=== PATIENT | male | born 1995 | race Caucasian/White ===

== ENCOUNTER 2017-03-09 01:23 | Emergency (ER) | payer BC ==
[2017-03-09 01:30] VITALS: RESP 16; TEMP 98.1
--- NOTE | 2017-03-09 02:05 | ED ---
Anxiety HPI - General Chief Complaint: Recheck/Abnormal Lab/Rx Stated Complaint: chest pain, hypertension Time Seen by Provider: 03/09/17 01:32 Source: patient, family Mode of arrival: wheelchair - History of Present Illness MD Complaint: anxiety, shortness of breath -: hour(s) Symptoms: dyspnea, chest pain, extremity numbness/tingling Place: home Previous History of Same: Yes Severity: mild Quality: improving Provoking factors: emotional stress Improves With: nothing Worsens With: nothing - Related Data Allergies/Adverse Reactions: Allergies Allergy/AdvReac Type Severity Reaction Status Date / Time amoxicillin Allergy Rash/Hives Verified 03/09/17 01:30 cefprozil Allergy Rash/Hives Verified 03/09/17 01:30 Review of Systems ROS Statement: Those systems with pertinent positive or pertinent negative responses have been documented in the HPI. ROS Other: All systems not noted in ROS Statement are negative. Constitutional: Denies: fever, chills Respiratory: Reports: dyspnea. Denies: cough, wheezes Cardiovascular: Reports: chest pain. Denies: palpitations, dyspnea on exertion , orthopnea, edema, syncope Gastrointestinal: Denies: abdominal pain, nausea, vomiting Genitourinary: Denies: dysuria, hematuria Musculoskeletal: Denies: back pain Skin: Denies: rash Neurological: Denies: headache, weakness, numbness Past Medical History Additional Past Medical History / Comment(s): aspergers. dyslexia. History of Any Multi-Drug Resistant Organisms: None Reported Additional Past Surgical History / Comment(s): deviated septum. Past Psychological History: Anxiety, Depression Smoking Status: Never smoker Past Alcohol Use History: None Reported Past Drug Use History: None Reported General Exam Limitations: no limitations General appearance: alert, in no apparent distress, anxious Head exam: Present: atraumatic, normocephalic Eye exam: Present: normal appearance ENT exam: Present: normal oropharynx Neck exam: Present: normal inspection Respiratory exam: Present: normal lung sounds bilaterally. Absent: respiratory distress, wheezes, rales, rhonchi, stridor Cardiovascular Exam: Present: regular rate, normal rhythm, normal heart sounds. Absent: systolic murmur, diastolic murmur, rubs, gallop GI/Abdominal exam: Present: soft. Absent: distended, tenderness, guarding, rebound, mass Extremities exam: Present: normal inspection, normal capillary refill. Absent: pedal edema, calf tenderness Back exam: Present: normal inspection. Absent: CVA tenderness (R), CVA tenderness (L) Neurological exam: Present: alert Psychiatric exam: Present: anxious. Absent: depressed, agitated, homicidal ideation, suicidal ideation Skin exam: Present: warm, dry, intact, normal color. Absent: rash Course Vital Signs 03/09/17 01:26 Temperature 98.1 F Pulse Rate 86 Respiratory 16 Rate Blood Pressure 144/94 O2 Sat by Pulse 99 Oximetry Medical Decision Making - EKG Data -: EKG Interpreted by Ca EKG shows normal: sinus rhythm, axis (Normal), intervals (Normal), QRS complexes (Normal) Rate: normal (Rate approximately 79 bpm) Interpretation: nonspecific ST-T wave changes Disposition Clinical Impression: Anxiety Disposition: HOME SELF-CARE Condition: Good Instructions: Anxiety (ED), Hypertension (ED) Referrals: Dwain Kapadia MD [Primary Care Provider] - 1-2 days
--- NOTE | 2017-03-09 02:32 | XR ---
EXAMINATION TYPE: XR chest 2V DATE OF EXAM: 03/09/2017 COMPARISON: NONE HISTORY: Chest pain TECHNIQUE: Frontal and lateral views of the chest are obtained. FINDINGS: Heart and mediastinum are normal. Lungs are clear. Diaphragm is normal. Bony thorax appear s intact. IMPRESSION: Normal chest
[2017-03-09 03:48] VITALS: BP 141/72; PULSE 81
== END 2017-03-09 03:47 | disposition home or self-care (01) ==
LOC: EC 01:23
DX: F41.9 Anxiety disorder, unspecified (principal); I10 Essential (primary) hypertension; R07.9 Chest pain, unspecified; R20.0 Anesthesia of skin; R20.2 Paresthesia of skin; Z88.0 Allergy status to penicillin; Z88.1 Allergy status to other antibiotic agents
CPT/HCPCS: 71020; 99285

== ENCOUNTER → 2017-05-18 | Outpatient (CLI) | payer BC ==
--- NOTE | 2017-05-18 17:09 | CT ---
EXAMINATION TYPE: CT brain wo con DATE OF EXAM: 05/18/2017 COMPARISON: NONE HISTORY: 21-year-old male Dizziness x2 weeks. TECHNIQUE: Examination was done in axial plane without intravenous contrast. Coronal and sagittal r econstructions performed. CT DLP: 974.3 mGycm Automated exposure control for dose reduction was used. FINDINGS: There is no evidence of acute intracranial hemorrhage, acute ischemic changes, mass, mass-effect, or extra-axial fluid collection. There is no effacement of cerebral sulci or basal subarachnoid cister ns. There is no hydrocephalus. There is no midline shift. Schrader-white matter distinction is preserv ed. Left superior parietal scalp lesion that is densely calcified measuring 1.1 cm, possible calcified se baceous cyst Paranasal sinuses and mastoid air cells are well pneumatized. Orbits and globes are intact. IMPRESSION: No acute intracranial abnormality seen. No obvious posterior cranial fossa or cerebellopontine angle lesion by CT though CT is prone to skull base artifacts limiting assessment of this region.
== END | disposition home or self-care (01) ==
LOC: RADCTMAIN 15:59
PROVIDERS: ATTEND Family Medicine
DX: R42 Dizziness and giddiness (principal); Z88.0 Allergy status to penicillin; Z88.1 Allergy status to other antibiotic agents
CPT/HCPCS: 70450

== ENCOUNTER → 2018-05-05 | Outpatient (CLI) | payer BC ==
[2018-05-05 10:35] LABS: Basophils % (A) 1 %; Eosinophils # (A) 0.2 k/uL (0-0.7); Eosinophils % (A) 3 %; HCT 52.7 % (39.0-53.0); Lymphocytes # (A) 2.1 k/uL (1.0-4.8); Lymphocytes % (A) 38 %; MCH 30.8 pg (25.0-35.0); MCHC 34.2 g/dL (31.0-37.0); MCV 90.1 fL (80.0-100.0); Mean Platelet Volume 8.2; Monocytes # (A) 0.4 k/uL (0-1.0); Monocytes % (A) 7 %; Neutrophils # (A) 2.7 k/uL (1.3-7.7); Neutrophils % (A) 49 %; Platelet Count 237 k/uL (150-450); RBC 5.85 m/uL (4.30-5.90); RDW 12.5 % (11.5-15.5); WBC 5.5 k/uL (3.8-10.6)
[2018-05-05 17:04] LABS: Albumin 4.6 g/dL (3.80-4.90); Albumin/Globulin Ratio 2.09 (1.20-2.10); Anion Gap 7.2 mmol/L (4.00-12.00); Carbon Dioxide 31.8 mmol/L (21.6-31.8); Globulin 2.2 g/dL (1.6-3.3); LDL Cholesterol,Calculated 133.4 mg/dL (0.0-131.0); Potassium 4.8 mmol/L (3.5-5.5); Total Bilirubin 0.7 mg/dL (0.2-1.2); Total Protein 6.8 g/dL (6.2-8.2); VLDL Calculation 29.6 mg/dL (5.00-40.00)
[2018-05-05 17:11] LABS: T4, Free (Free Thyroxine) 1.1 ng/dL (0.80-1.80)
== END | disposition home or self-care (01) ==
LOC: LABWHC1 09:26
PROVIDERS: ATTEND Family Medicine
DX: Z00.00 Encounter for general adult medical examination without abnormal findings (principal)
CPT/HCPCS: 36415; 80053; 80061; 84439; 84443; 85025

== ENCOUNTER 2018-05-14 18:30 | Emergency (ER) | payer BC ==
[2018-05-14 18:35] VITALS: BP 104/59; PULSE 76; RESP 18; TEMP 97.2
--- NOTE | 2018-05-14 18:59 | ED ---
Upper Extremity HPI - General Chief Complaint: Extremity Injury, Upper Stated Complaint: Finger injury Time Seen by Provider: 05/14/18 18:36 Source: patient, RN notes reviewed, old records reviewed Mode of arrival: ambulatory Limitations: no limitations - History of Present Illness Initial Comments: Patient is a 22-year-old male presents emergency today with chief complaint of bruising over the distal right fourth finger. Patient reports that he was trying to put a board underneath a tractor wheel. He reports that the treadmill backed up over the distal tip of his finger. Patient states he has full range of motion of the finger. He has no open lacerations. Patient states that he has full range of motion of the finger and normal sensation distally. - Related Data Allergies Allergy/AdvReac Type Severity Reaction Status Date / Time amoxicillin Allergy Rash/Hives Verified 05/14/18 18:32 cefprozil Allergy Rash/Hives Verified 05/14/18 18:32 Review of Systems ROS Statement: Those systems with pertinent positive or pertinent negative responses have been documented in the HPI. ROS Other: All systems not noted in ROS Statement are negative. Past Medical History Additional Past Medical History / Comment(s): aspergers. dyslexia. History of Any Multi-Drug Resistant Organisms: None Reported Additional Past Surgical History / Comment(s): deviated septum. Past Psychological History: Anxiety, Depression Smoking Status: Never smoker Past Alcohol Use History: None Reported Past Drug Use History: None Reported General Exam - General Exam Comments Initial Comments: 22-year-old male. Alert and oriented. No distress. Limitations: no limitations General appearance: alert, in no apparent distress Head exam: Present: atraumatic, normocephalic, normal inspection Eye exam: Present: normal appearance, PERRL, EOMI. Absent: scleral icterus, conjunctival injection, periorbital swelling ENT exam: Present: normal exam, mucous membranes moist Neck exam: Present: normal inspection. Absent: tenderness, meningismus, lymphadenopathy Respiratory exam: Present: normal lung sounds bilaterally. Absent: respiratory distress, wheezes, rales, rhonchi, stridor Cardiovascular Exam: Present: regular rate, normal rhythm, normal heart sounds. Absent: systolic murmur, diastolic murmur, rubs, gallop, clicks GI/Abdominal exam: Present: soft, normal bowel sounds. Absent: distended, tenderness, guarding, rebound, rigid Right Upper Arm exam: Present: normal inspection, full ROM Elbow exam: Present: normal inspection, full ROM Forearm Wrist exam: Present: normal inspection, full ROM Hand Wrist exam: Present: tenderness, swelling (Centers swelling and evidence of bruise over the medial aspect of the right fourth distal digit. Full range of motion noted. Normal sensation. Normal capillary refill less than 2 seconds.). Absent: normal inspection Vascular: Present: normal capillary refill Back exam: Present: normal inspection Neurological exam: Present: alert, oriented X3, CN II-XII intact Course Vital Signs 05/14/18 18:32 Temperature 97.2 F L Pulse Rate 76 Respiratory 18 Rate Blood Pressure 104/59 O2 Sat by Pulse 97 Oximetry Medical Decision Making - Medical Decision Making 22-year-old male presents returns today with right fourth digit pain. He reports that his finger was crushed between the wheel tract was trying to put a board behind the wheel the tractor stop it. Patient has full range motion finger. Contusion noted to the medial distal aspect of the finger. Patient has no laceration. The nailbed she has no subungual hematoma. X-ray was negative for any acute fracture. No evidence of tuft fracture. At this time Patient be discharged with instructions to use ice and anti-inflammatory medicine. Discussed that Patient should practice range motion of the finger. And then ultimately Patient can follow-up with orthopedic hand specialist if symptoms are progressing or worsening. Patient agrees to treatment plan will comply. Return parameters were discussed. - Radiology Data Radiology results: report reviewed Negative right hand exam. Disposition Clinical Impression: Finger contusion Disposition: HOME SELF-CARE Condition: Good Instructions (If sedation given, give patient instructions): Finger Sprain (ED) Additional Instructions: Patient advised to follow-up with primary care physician. Patient should apply ice over the finger. Patient should return to the emergency department if any alarming signs or symptoms occur. Is patient prescribed a controlled substance at d/c from ED?: No Referrals: Dwain Kapadia MD [Primary Care Provider] - 1-2 days Time of Disposition: 19:22
--- NOTE | 2018-05-14 19:14 | XR ---
EXAMINATION TYPE: XR hand complete RT DATE OF EXAM: 05/14/2018 COMPARISON: NONE HISTORY: Hand pain TECHNIQUE: 3 views FINDINGS: Metacarpals are intact. I see no fracture nor dislocation. There are no erosions. Joint spa deven are normal. IMPRESSION: Negative right hand exam.
== END 2018-05-14 19:29 | disposition home or self-care (01) ==
LOC: EC 18:30
DX: S60.041A Contusion of right ring finger without damage to nail, initial encounter (principal); Z88.0 Allergy status to penicillin; Z88.1 Allergy status to other antibiotic agents; W23.0XXA Caught, crushed, jammed, or pinched between moving objects, initial encounter; Y93.89 Activity, other specified
CPT/HCPCS: 99284

== ENCOUNTER 2018-06-22 10:10 | Day surgery (SDC) | payer BC ==
[2018-06-20 14:02] VITALS: BMI 33.7
--- NOTE | 2018-06-22 08:47 | P.GSHP ---
History of Present Illness H&P Date: 06/22/18 CHIEF COMPLAINT: GERD HISTORY OF PRESENT ILLNESS: The patient is a 22-year-old male who presents reports gastroesophageal reflux disease. Upper endoscopy was offered for further evaluation and management. PAST MEDICAL HISTORY: Please see list. PAST SURGICAL HISTORY: Please see list. MEDICATIONS: Please see list. ALLERGIES: Please see list. SOCIAL HISTORY: No illicit drug use FAMILY HISTORY: No reports of Crohn disease or ulcerative colitis. REVIEW OF ORGAN SYSTEMS: CONSTITUTIONAL: No reports of fevers or chills. GI: Denies any blood in stools or constipation. PHYSICAL EXAM: VITAL SIGNS: Stable GENERAL: Well-developed and pleasant in no acute distress. HEENT: No scleral icterus. Extraocular movements grossly intact. Moist buccal mucosa. NECK: Supple without lymphadenopathy. CHEST: Unlabored respirations. Equal bilateral excursions. CARDIOVASCULAR: Regular rate and rhythm. Distal 2+ pulses. ABDOMEN: Soft, nondistended. MUSCULOSKELETAL: No clubbing, cyanosis, or edema. ASSESSMENT: 1. Gastroesophageal reflux disease PLAN: 1. Recommend proceeding with an upper endoscopy Past Medical History Past Medical History: GERD/Reflux Additional Past Medical History / Comment(s): aspergers. dyslexia. ENVIRONMENTAL ALLERGIES History of Any Multi-Drug Resistant Organisms: None Reported Additional Past Surgical History / Comment(s): deviated septum REPAIR Past Anesthesia/Blood Transfusion Reactions: No Reported Reaction Smoking Status: Never smoker - Past Family History Mother Family Medical History: No Reported History Medications and Allergies Home Medications Medication Instructions Recorded Confirmed Type Levocetirizine Dihydrochloride 5 mg PO DAILY 06/20/18 06/20/18 History [Xyzal] PARoxetine HCL 20 mg PO DAILY 06/20/18 06/20/18 History Ranitidine HCl [Zantac] 300 mg PO HS 06/20/18 06/20/18 History lamoTRIgine 150 mg PO DAILY 06/20/18 06/20/18 History Allergies Allergy/AdvReac Type Severity Reaction Status Date / Time amoxicillin Allergy Rash/Hives Verified 06/20/18 13:54 cefprozil Allergy Rash/Hives Verified 06/20/18 13:54
[~2018-06-22 10:10] MED LIST: LACTATED RINGERS 1,000 ML IV SCH
[2018-06-22 10:45] VITALS: RESP 18; TEMP 97.8
[2018-06-22] MEDS ORDERED: PROPOFOL 10 MG/ML 20 ML VIAL IV ONE (11:51)
[2018-06-22] MEDS ORDERED: fentaNYL (PF) 50 MCG/ML 2 ML AMP ONE (11:51)
[2018-06-22] MEDS ORDERED: MIDAZOLAM 2 MG/2 ML VIAL ONE (11:51)
--- NOTE | 2018-06-22 12:04 | P.PCN ---
Date of Procedure: 06/22/18 Description of Procedure: PREOPERATIVE DIAGNOSIS: Gastroesophageal reflux disease. POSTOPERATIVE DIAGNOSIS: Gastritis. Gastroesophageal reflux disease. OPERATION: Esophagogastroduodenoscopy with biopsies along antrum. SURGEON: Margarita Alarcon MD ANESTHESIA: MAC. INDICATIONS: The patient is a 22-year-old male who presents with a history of reflux disease. Benefits and risks of the procedure were described. Informed consent was obtained. DESCRIPTION: The patient was brought into the endoscopy suite and laid in the left lateral decubitus position. An Olympus gastroscope was passed along the posterior oropharynx down to the distal esophagus where the squamocolumnar junction was encountered at 42 cm from the incisors. The stomach was entered and no bile reflux was found. Additional findings are listed below. Biopsies with cold forceps were obtained of the antrum. The first through third portion of the duodenum was examined and unremarkable. Retroflexion of the scope confirmed Hill grade 1 lower esophageal valve. The squamocolumnar junction demonstrated LA grade A erosive esophagitis. The stomach was desufflated. The patient tolerated the procedure well. FINDINGS: Squamocolumnar junction 42 cm from the incisors. Diaphragmatic hiatus at 42 cm. Hill grade 1 lower esophageal valve. LA grade A erosive esophagitis. No active duodenitis. Chronic gastritis RECOMMENDATIONS: Upper endoscopy as needed. Plan - Discharge Summary Discharge Rx Participant: No New Discharge Prescriptions: New Omeprazole 40 mg PO DAILY #90 capsule. No Action Ranitidine HCl [Zantac] 300 mg PO HS lamoTRIgine 150 mg PO DAILY PARoxetine HCL 20 mg PO DAILY Levocetirizine Dihydrochloride [Xyzal] 5 mg PO DAILY Discharge Medication List Levocetirizine Dihydrochloride [Xyzal] 5 mg PO DAILY 06/20/18 [History] PARoxetine HCL 20 mg PO DAILY 06/20/18 [History] Ranitidine HCl [Zantac] 300 mg PO HS 06/20/18 [History] lamoTRIgine 150 mg PO DAILY 06/20/18 [History] Omeprazole 40 mg PO DAILY #90 capsule. 06/22/18 [Rx] Follow up Appointment(s)/Referral(s): Margarita Alarcon MD [STAFF PHYSICIAN] - 07/17/18 Patient Instructions/Handouts: Gastroesophageal Reflux Disease (DC) Discharge Disposition: HOME SELF-CARE
[2018-06-22 12:26] VITALS: BP 126/68; PULSE 77
== END 2018-06-22 12:46 | disposition home or self-care (01) ==
LOC: ORWHC2ENDO 10:10
PROVIDERS: ATTEND Surgery Plastic and Reconstructive Surgery
DX: K21.0 Gastro-esophageal reflux disease with esophagitis (principal); K29.50 Unspecified chronic gastritis without bleeding; R48.0 Dyslexia and alexia; F32.9 Major depressive disorder, single episode, unspecified; Z79.899 Other long term (current) drug therapy; Z88.1 Allergy status to other antibiotic agents; Z91.09 Other allergy status, other than to drugs and biological substances
CPT/HCPCS: 88305; 43239; J2250; J3010; J2704

== ENCOUNTER → 2018-06-25 | Outpatient (CLI) | payer BC ==
--- NOTE | 2018-06-25 13:25 | US ---
EXAMINATION TYPE: US abdomen limited DATE OF EXAM: 06/25/2018 COMPARISON: NONE CLINICAL HISTORY: K21.9 GERD. . Right upper quadrant and epigastric pain. EXAM MEASUREMENTS: Liver Length: 14.8 cm Gallbladder Wall: 0.3 cm CBD: 0.3 cm Right Kidney: 10.7 x 6.3 x 5.5 cm Technical limitations due to overlying bowel content Pancreas: Obscured by bowel gas Liver: appears wnl Gallbladder: no evidence of stones Evidence for sonographic Diaz's sign: no CBD: appears wnl Right Kidney: no evidence of hydronephrosis Suboptimal study due to overlying bowel gas per technologist. Suboptimal evaluation of pancreas noted on images saved. IMPRESSION: No gallstones or ultrasound evidence for acute cholecystitis.
--- NOTE | 2018-06-25 15:10 | NM ---
EXAMINATION TYPE: NM hepatobiliary w EF DATE OF EXAM: 06/25/2018 COMPARISON: Same-day Limited abdominal ultrasound HISTORY: GERD per order. Additional symptoms of heartburn per patient. TECHNIQUE: After the intravenous administration of 5.3 mCi Tc 99m Mebrofenin hepatobiliary scintigrap hy is performed. Immediate images post injection. FINDINGS: There is satisfactory initial accumulation of tracer by the liver. The gallbladder is visualized wit hin 25 minutes. The small bowel activity is noted within 15 minutes. At one hour 8 ounces of oral e nsure plus is given to mimic CCK and gallbladder ejection fraction is calculated at 64 %, in the norm al range. Therefore there is no scintigraphic evidence of cystic or common bile duct obstruction to suggest acute cholecystitis or gallbladder dyskinesia. IMPRESSION: Exam is within normal limits.
== END | disposition home or self-care (01) ==
LOC: RADUSMAIN 12:09
PROVIDERS: ATTEND Surgery Plastic and Reconstructive Surgery
DX: K21.9 Gastro-esophageal reflux disease without esophagitis (principal)
CPT/HCPCS: 76705; 78226; A9537

== ENCOUNTER → 2019-04-16 | Outpatient (CLI) | payer BC ==
[2019-04-16 10:11] LABS: Basophils % (A) 0 %; Eosinophils # (A) 0.2 k/uL (0-0.7); Eosinophils % (A) 3 %; HCT 50.8 % (39.0-53.0); HGB 17.6 gm/dL (13.0-17.5); Lymphocytes # (A) 2.2 k/uL (1.0-4.8); Lymphocytes % (A) 39 %; MCHC 34.7 g/dL (31.0-37.0); MCV 89.4 fL (80.0-100.0); Mean Platelet Volume 8.4; Monocytes # (A) 0.3 k/uL (0-1.0); Monocytes % (A) 6 %; Neutrophils # (A) 2.7 k/uL (1.3-7.7); Neutrophils % (A) 48 %; Platelet Count 230 k/uL (150-450); RBC 5.68 m/uL (4.30-5.90); RDW 11.7 % (11.5-15.5); WBC 5.6 k/uL (3.8-10.6)
[2019-04-16 17:16] LABS: African American GFR (CKD) 107.6 (60.0-200.0); Albumin 4.6 g/dL (3.80-4.90); Albumin/Globulin Ratio 2.42 (1.60-3.17); Anion Gap 7.3 mmol/L (4.00-12.00); BUN/Creat Ratio 11.82 Ratio (12.00-20.00); Carbon Dioxide 29.7 mmol/L (21.6-31.8); Chol/HDL Ratio 3.92; Globulin 1.9 g/dL (1.6-3.3); LDL Cholesterol,Calculated 131.6 mg/dL (0.0-131.0); Non-African American GFR(CKD) 92.8 (60.0-200.0); Potassium 4.8 mmol/L (3.5-5.5); Total Bilirubin 0.6 mg/dL (0.2-1.2); Total Protein 6.5 g/dL (6.2-8.2); VLDL Calculation 20.4 mg/dL (5.00-40.00)
[2019-04-16 17:24] LABS: T4, Free (Free Thyroxine) 1.2 ng/dL (0.80-1.80)
== END | disposition home or self-care (01) ==
LOC: LABWHC1 09:35
PROVIDERS: ATTEND Family Medicine
DX: Z00.00 Encounter for general adult medical examination without abnormal findings (principal)
CPT/HCPCS: 36415; 80053; 80061; 84439; 84443; 85025

== ENCOUNTER → 2021-06-19 | Outpatient (CLI) | payer BC ==
[2021-06-19 16:47] LABS: Basophils # (A) 0.05 X 10*3/uL (0.00-0.10); Basophils % (A) 0.8 %; Eosinophils % (A) 3.2 %; HCT 49.8 % (39.6-50.0); HGB 16.9 g/dL (13.0-17.0); Immature Grans, Automated 0.5 %; Lymphocytes # (A) 2.46 X 10*3/uL (0.90-5.00); Lymphocytes % (A) 39.5 %; MCH 30.6 pg (27.0-32.0); MCHC 33.9 g/dL (32.0-37.0); MCV 90.1 fL (80.0-97.0); Monocytes # (A) 0.67 X 10*3/uL (0.20-1.00); Monocytes % (A) 10.8 %; NRBC Per 100 WBC 0 /100 WBCS (0.0-0.0); Neutrophils # (A) 2.82 X 10*3/uL (1.80-7.70); Neutrophils % (A) 45.2 %; Platelet Count 240 X 10*3/uL (140-440); RBC 5.53 X 10*6/uL (4.40-5.60); RDW 12.2 % (11.5-14.5); WBC 6.23 X 10*3/uL (4.50-10.00)
[2021-06-19 17:22] LABS: ALT 45 U/L (10-49); AST 30 U/L (14-35); African American GFR (CKD) 117.6 (60.0-200.0); Albumin 4.7 g/dL (3.8-4.9); Albumin/Globulin Ratio 2.15 (1.60-3.17); Alkaline Phosphatase 76 U/L (41-126); Blood Urea Nitrogen 9.9 mg/dL (9.0-27.0); Calcium 9.9 mg/dL (8.7-10.3); Carbon Dioxide 27.1 mmol/L (20.0-27.5); Chloride 105 mmol/L (96-109); Chol/HDL Ratio 4.55 Ratio; Globulin 2.2 g/dL (1.6-3.3); Glucose 89 mg/dL (70-110); LDL Cholesterol,Calculated 128.6 mg/dL (0.0-131.0); Non-African American GFR(CKD) 101.5 (60.0-200.0); Potassium 4.6 mmol/L (3.5-5.5); Sodium 143 mmol/L (135-145); Total Protein 6.9 g/dL (6.2-8.2); VLDL Calculation 19.56 mg/dL (5.00-40.00)
== END | disposition home or self-care (01) ==
LOC: LABWHC1 09:06
PROVIDERS: ATTEND Family Medicine
DX: Z00.00 Encounter for general adult medical examination without abnormal findings (principal)
CPT/HCPCS: 36415; 80053; 80061; 84439; 84443; 85025

== ENCOUNTER → 2022-07-02 | Outpatient (CLI) | payer BC ==
[2022-07-02 12:02] LABS: Basophils # (A) 0.03 X 10*3/uL (0.00-0.10); Basophils % (A) 0.5 %; Eosinophils # (A) 0.18 X 10*3/uL (0.04-0.35); Eosinophils % (A) 2.9 %; HCT 47.1 % (39.6-50.0); HGB 16.3 g/dL (13.0-17.0); Immature Grans, Automated 0.5 %; Lymphocytes # (A) 1.93 X 10*3/uL (0.90-5.00); Lymphocytes % (A) 31.3 %; MCH 30.6 pg (27.0-32.0); MCHC 34.6 g/dL (32.0-37.0); MCV 88.5 fL (80.0-97.0); Mean Platelet Volume 11.1 fL (9.5-12.2); Monocytes # (A) 0.55 X 10*3/uL (0.20-1.00); Monocytes % (A) 8.9 %; NRBC Per 100 WBC 0 /100 WBCS (0.0-0.0); Neutrophils # (A) 3.44 X 10*3/uL (1.80-7.70); Neutrophils % (A) 55.9 %; Platelet Count 226 X 10*3/uL (140-440); RBC 5.32 X 10*6/uL (4.40-5.60); RDW 11.9 % (11.5-14.5); WBC 6.16 X 10*3/uL (4.50-10.00)
[2022-07-02 12:15] LABS: ALT 39 U/L (10-49); AST 25 U/L (14-35); African American GFR (CKD) 110.2 (60.0-200.0); Albumin 4.5 g/dL (3.8-4.9); Alkaline Phosphatase 71 U/L (41-126); BUN/Creat Ratio 11.89 Ratio (12.00-20.00); Blood Urea Nitrogen 12.6 mg/dL (9.0-27.0); Calcium 9.8 mg/dL (8.7-10.3); Carbon Dioxide 29.5 mmol/L (20.0-27.5); Chloride 107 mmol/L (96-109); Chol/HDL Ratio 4.23 Ratio; Globulin 2.2 g/dL (1.6-3.3); Glucose 102 mg/dL (70-110); LDL Cholesterol,Calculated 120.8 mg/dL (0.0-131.0); Potassium 4.5 mmol/L (3.5-5.5); Sodium 143 mmol/L (135-145); Total Protein 6.7 g/dL (6.2-8.2); VLDL Calculation 18.86 mg/dL (5.00-40.00)
== END | disposition home or self-care (01) ==
LOC: LABWHC1 08:20
PROVIDERS: ATTEND Family Medicine
DX: Z00.00 Encounter for general adult medical examination without abnormal findings (principal)
CPT/HCPCS: 36415; 80053; 80061; 84439; 84443; 85025

== ENCOUNTER 2024-03-05 16:33 | Emergency (ER) | payer BC, OTHER ==
[2024-03-05 17:11] VITALS: RESP 18; TEMP 98
--- NOTE | 2024-03-05 17:29 | ED ---
URI HPI - General Chief Complaint: Upper Respiratory Infection Stated Complaint: allergic reaction Time Seen by Provider: 03/05/24 16:50 Source: patient, family, RN notes reviewed Mode of arrival: ambulatory Limitations: no limitations - History of Present Illness Initial Comments: This is a 28-year-old male with no significant past medical history who scented to emergency room with mother father for chief complaint of intermittent chills, productive cough, postnasal drip, headaches. Patient states that he was evaluated urgent care on Monday with symptoms stated above and was started on antitussive and prednisone. States that today and yesterday evening he began to feel off experience that he was floating and is concerned that he is possibly having medication side effects. He denies chest pain, shortness of breath, difficulty breathing. - Related Data Home Medications Medication Instructions Recorded Confirmed Levocetirizine Dihydrochloride 5 mg PO DAILY 06/20/18 06/22/18 [Xyzal] PARoxetine HCL 20 mg PO DAILY 06/20/18 06/22/18 lamoTRIgine 150 mg PO DAILY 06/20/18 06/22/18 raNITIdine HCL [Zantac] 300 mg PO HS 06/20/18 06/22/18 Previous Rx's Medication Instructions Recorded Omeprazole 40 mg PO DAILY #90 capsule. 06/22/18 Nystatin [Nystatin Oral Susp] 5 ml PO QID #120 ml 03/05/24 Allergies Allergy/AdvReac Type Severity Reaction Status Date / Time amoxicillin Allergy Rash/Hives Verified 03/05/24 17:06 cefprozil Allergy Rash/Hives Verified 03/05/24 17:06 Review of Systems ROS Statement: Those systems with pertinent positive or pertinent negative responses have been documented in the HPI. ROS Other: All systems not noted in ROS Statement are negative. Past Medical History Past Medical History: GERD/Reflux Additional Past Medical History / Comment(s): aspergers. dyslexia. ENVIRONMENTAL ALLERGIES History of Any Multi-Drug Resistant Organisms: None Reported Additional Past Surgical History / Comment(s): deviated septum REPAIR Past Anesthesia/Blood Transfusion Reactions: No Reported Reaction Past Psychological History: Anxiety, Depression Smoking Status: Never smoker Past Alcohol Use History: None Reported Past Drug Use History: None Reported - Past Family History Mother Family Medical History: No Reported History General Exam Limitations: no limitations General appearance: alert, in no apparent distress Expanded Mouth exam: Present: other (posterior oropharynx white plaques that scrape off with pressure, no bleeding) Throat exam: negative: tonsillar erythema, tonsillomegaly, tonsillar exudate Neck exam: Present: normal inspection. Absent: tenderness, meningismus, lymphadenopathy Respiratory exam: Present: normal lung sounds bilaterally. Absent: respiratory distress, wheezes, rales, rhonchi, stridor Cardiovascular Exam: Present: regular rate, normal rhythm, normal heart sounds. Absent: systolic murmur, diastolic murmur, rubs, gallop, clicks GI/Abdominal exam: Present: soft, normal bowel sounds. Absent: distended, tenderness, guarding, rebound, rigid Extremities exam: Present: normal inspection, full ROM, normal capillary refill. Absent: tenderness, pedal edema, joint swelling, calf tenderness Course Vital Signs 03/05/24 17:07 Temperature 98 F Pulse Rate 83 Respiratory 18 Rate Blood Pressure 151/83 O2 Sat by Pulse 97 Oximetry Medical Decision Making - Medical Decision Making Was pt. sent in by a medical professional or institution (Dr. PA, ASSISTANT PUBLIC DEFENDER, urgent care, hospital, or fdc...) When possible be specific @ -No Did you speak to anyone other than the patient for history (EMS, parent, family, police, friend...)? What history was obtained from this source @ -No Did you review nursing and triage notes (agree or disagree)? Why? @ -I reviewed and agree with nursing and triage notes Were old charts reviewed (outside hosp., previous admission, EMS record, old EKG, old radiological studies, urgent care reports/EKG's, fdc records)? Report findings @ -No old charts were reviewed Differential Diagnosis (chest pain, altered mental status, abdominal pain women, abdominal pain men, vaginal bleeding, weakness, fever, dyspnea, syncope, headache, dizziness, GI bleed, back pain, seizure, CVA, palpatations, mental health, musculoskeletal)? @ -COVID 19, RSV, influenza, pneumonia, acute bronchitis, URI, this list is not all inclusive EKG interpreted by me (3pts min.). @ -None X-rays interpreted by me (1pt min.). @ -Chest x-ray reveals no acute cardiopulmonary process or disease CT interpreted by me (1pt min.). @ -None done U/S interpreted by me (1pt. min.). @ -None done What testing was considered but not performed or refused? (CT, X-rays, U/S, labs)? Why? @ -None What meds were considered but not given or refused? Why? @ -None Did you discuss the management of the patient with other professionals (professionals i.e. , PA, ASSISTANT PUBLIC DEFENDER, lab, RT, psych nurse, social work assistant, tree scout, teacher, assurance officer, case filler)? Give summary @ -No Was smoking cessation discussed for >3mins.? @ -No Was critical care preformed (if so, how long)? @ -No Were there social determinants of health that impacted care today? How? (Homelessness, low income, unemployed, alcoholism, drug addiction, transportation, low edu. Level, literacy, decrease access to med. care, senior care, rehab)? @ -No Was there de-escalation of care discussed even if they declined (Discuss DNR or withdrawal of care, Hospice)? DNR status @ -No What co-morbidities impacted this encounter? (DM, HTN, Smoking, COPD, CAD, Cancer, CVA, ARF, Chemo, Hep., AIDS, mental health diagnosis, sleep apnea, morbid obesity)? @ -None Was patient admitted / discharged? Hospital course, mention meds given and route, prescriptions, significant lab abnormalities, going to OR and other pertinent info. @ -discharge. 28-year-old male with upper respiratory infection symptoms and sore throat. My evaluation the patient is resting company no signs acute distress. Vitals are stable. Posterior oropharynx remarkable for white plaques that scrape off consistent with thrush. Patient's chest x-ray unremarkable. Negative for COVID, flu, RSV. Discussion with patient to discontinue use of steroids as this may be causing side effects stated earlier. Additionally, discussion that Tessalon Perles are only to be used as needed up to 3 times a day and do not take them unless needed. Prescription sent for nystatin oral rinse and patient started to continue supportive treatment at home for viral URI. Discussed with Dr. Gerber Undiagnosed new problem with uncertain prognosis? @ -No Drug Therapy requiring intensive monitoring for toxicity (Heparin, Nitro, Insulin, Cardizem)? @ -No Were any procedures done? @ -No Diagnosis/symptom? @ -thrush, Sore throat, viral URI Acute, or Chronic, or Acute on Chronic? @ -Acute Uncomplicated (without systemic symptoms) or Complicated (systemic symptoms)? @ -uncomplicated Side effects of treatment? @ -No Exacerbation, Progression, or Severe Exacerbation? @ -No Poses a threat to life or bodily function? How? (Chest pain, [place], [place], pneumonia, PE, COPD, DKA, ARF, appy, cholecystitis, CVA, Diverticulitis, Homicidal, Suicidal, threat to staff... and all critical care pts) @ -No - Lab Data Lab Results 03/05/24 03/05/24 Range/Units 17:56 17:56 Influenza Type A (PCR) Not Detected (Not Detectd) Influenza Type B (PCR) Not Detected (Not Detectd) RSV (PCR) Not Detected (Not Detectd) SARS-CoV-2 (PCR) Not Detected (Not Detectd) Group A Strep (PCR) NOT DETECTED (Not Detectd) Disposition Clinical Impression: Thrush, Viral URI, Cough Disposition: HOME SELF-CARE Condition: Good Instructions (If sedation given, give patient instructions): Oral Candidiasis (ED) Additional Instructions: Please return to the Emergency Department if symptoms worsen or any other concerns. It is recommend that you discontinue use of prednisone. Use antitussive, benzonatate/Tessalon Perles, only as needed up to 3 times per day. Continue supportive treatment at home such as using Tylenol and Motrin as needed. Use oral rinse nystatin as directed. Prescriptions: Nystatin [Nystatin Oral Susp] 5 ml PO QID #120 ml Is patient prescribed a controlled substance at d/c from ED?: No Referrals: Dwain Kapadia MD [Primary Care Provider] - 1-2 days Time of Disposition: 18:59
--- NOTE | 2024-03-05 17:55 | XR ---
EXAMINATION TYPE: XR chest 2V DATE OF EXAM: 03/05/2024 5:48 PM COMPARISON: Chest radiographs from 03/09/2017 CLINICAL INDICATION: Male, 28 years old with history of productive cough, fevers; [facility] TECHNIQUE: XR chest 2V Frontal and lateral views of the chest. FINDINGS: Lungs/Pleura: There is no evidence of pleural effusion, focal consolidation, or pneumothorax. Pulmonary vascularity: Unremarkable. Heart/mediastinum: Cardiomediastinal silhouette is unremarkable. Musculoskeletal: No acute osseous pathology. IMPRESSION: No acute cardiopulmonary disease/process. [facility], , 03/05/2024 5:52 PM
[2024-03-05 19:09] VITALS: BP 139/86; PULSE 80
== END 2024-03-05 19:25 | disposition home or self-care (01) ==
LOC: EC 16:33
DX: J06.9 Acute upper respiratory infection, unspecified (principal); B97.89 Other viral agents as the cause of diseases classified elsewhere; B37.9 Candidiasis, unspecified; Z88.4 Allergy status to anesthetic agent; Z88.0 Allergy status to penicillin
CPT/HCPCS: 71046; 87636; 87651; 99283